=== PATIENT | male | born 1970 | race Hispanic/Latino ===

== ENCOUNTER 2025-05-06 11:18 | Emergency (ER) | payer SELFPAY ==
[2025-05-06 12:17] LABS: BASOPHILS ABSOLUTE AUTO 0.1 K/mm3 (0.0-0.2); BASOPHILS PERCENT AUTO 0.9 % (0.0-1.0); EOSINOPHILS ABSOLUTE AUTO 0.2 K/mm3 (0.0-0.4); EOSINOPHILS PERCENT AUTO 3.1 % (0.0-6.0); IMMATURE GRAN ABSOLUTE AUTO 0.03 K/mm3 (0.00-0.05); IMMATURE GRAN PERCENT AUTO 0.5 % (0.0-0.4); LYMPHOCYTES ABSOLUTE AUTO 1.0 K/mm3 (1.0-4.8); LYMPHOCYTES PERCENT AUTO 15.2 % (24.0-44.0); MEAN PLATELET VOLUME 11.1 fl (9.4-12.4); MONOCYTES ABSOLUTE AUTO 0.4 K/mm3 (0.0-0.8); MONOCYTES PERCENT AUTO 6.6 % (0.0-8.0); NEUTROPHILS ABSOLUTE AUTO 4.7 K/mm3 (1.8-7.7); NEUTROPHILS PERCENT AUTO 73.7 % (41.0-71.0); NRBC ABSOLUTE 0.00 (0.00-0.02); NRBC PERCENT 0.0 % (0.0-0.2); PLATELET COUNT,PLT 244 K/mm3 (150-400); RED BLOOD CELL COUNT 4.82 M/mm3 (4.52-5.90); WHITE BLOOD CELL COUNT,WBC 6.38 K/mm3 (3.9-11.3)
[2025-05-06 12:34] LABS: INR 0.97
[2025-05-06 12:45] LABS: A/G RATIO 0.6 (1-2); ALANINE AMINOTRANSFERASE,ALT 24.0 U/L (16-63); ASPARTATE AMNIOTRANSFERASE,AST 28.0 U/L (15-37); BILIRUBIN TOTAL 0.6 mg/dL (0.2-1.0); BLOOD UREA NITROGEN,BUN 51.0 mg/dL (7-18); CARBON DIOXIDE,CO2 24.0 mEq/L (21-32); CHLORIDE,CL 107.0 mEq/L (98-107); CHOLESTEROL HDL 54.0 mg/dL (40-59); CHOLESTEROL LDL DIRECT 235.0 mg/dL (<100); CHOLESTEROL TOTAL 365.0 mg/dL (<200); CREATINE KINASE,CK 290.0 U/L (39-308); CREATININE 4.8 mg/dL (0.7-1.3); EST CRCL DRUG DOSING (CG) 17.8 mL/min; ESTIMATED GFR 14.0 mL/min (>60); GLUCOSE RANDOM 147.0 mg/dL (70-99); POTASSIUM,K 4.6 mEq/L (3.5-5.1); PROTEIN TOTAL,TP 5.4 g/dl (6.4-8.2); SODIUM,NA 139.0 mEq/L (136-145)
[2025-05-06 12:47] LABS: ETHANOL BLOOD MEDICAL 0.0 gm% (0.00); TROPONIN I HIGH SENSITIVITY 230.0 pg/mL (<=76)
[2025-05-06] MEDS: hydrALAZINE 20 MG/ML SDV IVPUSH STA (13:31)
== END 2025-05-06 17:47 | disposition home or self-care (01) ==
LOC: JD.ED 11:18
DX: I16.0 Hypertensive urgency (principal); I12.9 Hypertensive chronic kidney disease with stage 1 through stage 4 chronic kidney disease, or unspecified chronic kidney disease; N18.9 Chronic kidney disease, unspecified; N17.9 Acute kidney failure, unspecified; D50.9 Iron deficiency anemia, unspecified; E83.42 Hypomagnesemia; E83.51 Hypocalcemia; E11.22 Type 2 diabetes mellitus with diabetic chronic kidney disease; Z79.899 Other long term (current) drug therapy
CPT/HCPCS: 36415; 80053; 80061; 80307; 82550; 82947; 83036; 83690; 83735; 83880; 84484; 85025; 85610; 93005; 96374; 99285-25; A9270-GY; J0360

== ENCOUNTER 2025-05-13 09:11 | Emergency (ER) | payer SELFPAY ==
[2025-05-13] MEDS ORDERED: Sodium Chloride 0.9% 10 ML Syringe FLUSH PRN (09:53)
[2025-05-13 10:01] LABS: BASOPHILS ABSOLUTE AUTO 0.0 K/mm3 (0.0-0.2); BASOPHILS PERCENT AUTO 0.4 % (0.0-1.0); EOSINOPHILS ABSOLUTE AUTO 0.1 K/mm3 (0.0-0.4); EOSINOPHILS PERCENT AUTO 1.0 % (0.0-6.0); IMMATURE GRAN ABSOLUTE AUTO 0.03 K/mm3 (0.00-0.05); IMMATURE GRAN PERCENT AUTO 0.4 % (0.0-0.4); LYMPHOCYTES ABSOLUTE AUTO 1.0 K/mm3 (1.0-4.8); LYMPHOCYTES PERCENT AUTO 12.8 % (24.0-44.0); MEAN PLATELET VOLUME 11.4 fl (9.4-12.4); MONOCYTES ABSOLUTE AUTO 0.4 K/mm3 (0.0-0.8); MONOCYTES PERCENT AUTO 5.6 % (0.0-8.0); NEUTROPHILS ABSOLUTE AUTO 6.1 K/mm3 (1.8-7.7); NEUTROPHILS PERCENT AUTO 79.8 % (41.0-71.0); NRBC ABSOLUTE 0.00 (0.00-0.02); NRBC PERCENT 0.0 % (0.0-0.2); PLATELET COUNT,PLT 256 K/mm3 (150-400); RED BLOOD CELL COUNT 5.22 M/mm3 (4.52-5.90); WHITE BLOOD CELL COUNT,WBC 7.67 K/mm3 (3.9-11.3)
[2025-05-13] MEDS: Iopamidol 755 Mg/ML 100 ML Bottle IVPUSH ONE (10:03)
[2025-05-13] MEDS: Sodium Chloride 0.9% 10 ML Syringe FLUSH PRN (10:03)
[2025-05-13 10:16] LABS: A/G RATIO 0.7 (1-2); ALANINE AMINOTRANSFERASE,ALT 37.0 U/L (16-63); ASPARTATE AMNIOTRANSFERASE,AST 29.0 U/L (15-37); BILIRUBIN TOTAL 0.5 mg/dL (0.2-1.0); BLOOD UREA NITROGEN,BUN 65.0 mg/dL (7-18); CARBON DIOXIDE,CO2 21.0 mEq/L (21-32); CHLORIDE,CL 106.0 mEq/L (98-107); CREATININE 5.1 mg/dL (0.7-1.3); EST CRCL DRUG DOSING (CG) 16.75 mL/min; ESTIMATED GFR 13.0 mL/min (>60); GLUCOSE RANDOM 106.0 mg/dL (70-99); POTASSIUM,K 4.9 mEq/L (3.5-5.1); PROTEIN TOTAL,TP 5.9 g/dl (6.4-8.2); SODIUM,NA 139.0 mEq/L (136-145); TSH 1.66 uIU/mL (0.358-3.74)
[2025-05-13 10:19] LABS: TROPONIN I HIGH SENSITIVITY 264.0 pg/mL (<=76)
[2025-05-13] MEDS: Nitroglycerin 0.4 MG Tab.SL SL PRN (13:38)
[2025-05-13] MEDS: Heparin Sodium 5,000 Units/ML Vial IVPUSH ONE (13:41)
[2025-05-13] MEDS: Heparin Sodium/D5W 250 ML IV SCH (13:43)
== END 2025-05-13 14:38 ==
LOC: MERGE 09:11 → JD.ED 09:11
DX: I21.4 Non-ST elevation (NSTEMI) myocardial infarction (principal); N17.9 Acute kidney failure, unspecified; R74.8 Abnormal levels of other serum enzymes; I10 Essential (primary) hypertension; E11.9 Type 2 diabetes mellitus without complications
CPT/HCPCS: 36415; 71275; 80053; 82550; 83690; 84443; 84484; 85025; 93005; 96361; 96365; 96375; 99285; A9270; J1644; J7030; Q9967; 93010